=== PATIENT | male | born 2000 | race Caucasian/White ===

== ENCOUNTER 2019-02-27 19:45 | Emergency (ER) | payer SELFPAY ==
[~2019-02-27] VITALS: Ht 185.4 cm; Wt 70.4 kg
[2019-02-27 20:02] VITALS: BP 141/87
--- NOTE | 2019-02-27 20:53 | NUR ---
Patient/Caregiver given discharge instructions and they have confirmed that they understand the instructions. Patient ambulatory with steady gait.
== END 2019-02-27 20:55 | disposition home or self-care (01) ==
LOC: ED 20:45
DX: B37.9 Candidiasis, unspecified (principal); F17.210 Nicotine dependence, cigarettes, uncomplicated
CPT/HCPCS: 99283